=== PATIENT | female | born 1990 | race Caucasian/White ===

== ENCOUNTER 2021-04-18 19:58 | Emergency (ER) | payer BC, OTHER ==
[2021-04-18 20:10] VITALS: BP 127/82; PULSE 98; TEMP 97.8; BMI 35.2
[2021-04-18] MEDS ORDERED: IBUPROFEN 600 MG TABLET (FP) PO ONE (21:16)
== END 2021-04-18 21:23 | disposition home or self-care (01) ==
LOC: FER 19:58
DX: S63.614A Unspecified sprain of right ring finger, initial encounter (principal); S63.616A Unspecified sprain of right little finger, initial encounter; Y35.811A Legal intervention involving manhandling, law enforcement official injured, initial encounter
CPT/HCPCS: 73140-TC-RT-FY; 99283-25

== ENCOUNTER 2021-08-04 13:06 | Emergency (ER) | payer BC, OTHER ==
[2021-08-04 13:15] VITALS: BP 116/68; PULSE 73; TEMP 98.1; BMI 29.9
[2021-08-04] MEDS ORDERED: ALBUTEROL SO4 2.5/IPRATROPIUM 0.5 INH SOL 3 ML VIAL.NEB. NEB ONE ×2 (13:23→13:37)
[2021-08-04] MEDS ORDERED: predniSONE 20 MG TABLET (UD) PO ONE (15:10)
[2021-08-04] MEDS ORDERED: predniSONE 20 MG TABLET (UD) ONE (15:41)
== END 2021-08-04 15:56 | disposition home or self-care (01) ==
LOC: FER 13:06
PROC: 3E0F7GC Introduction of Other Therapeutic Substance into Respiratory Tract, Via Natural or Artificial Opening (ICD-10-PCS; principal; 2021-08-04)
DX: R06.02 Shortness of breath (principal); R06.2 Wheezing
CPT/HCPCS: 71046-TC-FY; 93005; 99284-25